=== PATIENT | female | born 1955 | race Caucasian/White ===

== ENCOUNTER → 2017-03-21 | Outpatient (CLI) | payer MEDICARE, OTHER | END | disposition home or self-care (01) | LOC: CDC | DX: Z01.810 Encounter for preprocedural cardiovascular examination (principal) | CPT/HCPCS: 93000 ==

== ENCOUNTER 2017-05-13 05:31 | Day surgery (SDC) | payer OTHER ==
[~2017-05-13] VITALS: Ht 167.6 cm; Wt 102.5 kg
[~2017-05-13 05:31] MED LIST: ASCORBIC ACID100 MG PO; ASPIR 8181 M1 PO; BIOTIN1 MG PO; CRANBERRY TABL1 EACH PO; DDAVP 0.0110 MCG/0.1 NS; IBUPROFEN200 M1 PO; IBUPROFEN800 MG PO; METHENAMINE HIPP1 GM PO; MULTI-DAY PLUS1 EAC1 PO; PROBIOTIC1 EAC1 PO
[2017-05-13 06:01] VITALS: BP 156/75
[2017-05-13 10:15] VITALS: BP 173/98
[2017-05-13 11:05] VITALS: BP 132/68
== END 2017-05-13 11:09 | disposition home or self-care (01) ==
LOC: SDC 05:31
PROVIDERS: Obstetrics & Gynecology
DX: N95.0 Postmenopausal bleeding (principal); E23.2 Diabetes insipidus; M79.7 Fibromyalgia; E66.9 Obesity, unspecified; Z68.37 Body mass index [BMI] 37.0-37.9, adult; Z79.82 Long term (current) use of aspirin; Z88.0 Allergy status to penicillin; Z88.2 Allergy status to sulfonamides
CPT/HCPCS: 82948; 88305; J1170; J1885; Q0175